=== PATIENT | female | born 1950 | race Two or more races ===

== ENCOUNTER 2023-01-07 00:21 | Inpatient (IN) | payer MEDICARE, OTHER ==
[~2023-01-07] VITALS: Ht 157.5 cm; Wt 37.2 kg
[~2023-01-07 00:21] MED LIST: ACET-73 PO; ATOR40TA PO; BISA10SU11 RC; CLOP75TA15 PO; CRAN1CAP6 PO; DOCU-141 PO; FAMO20TA8 PO; HYDR-3974 PO; LEVO50TA8 PO; LISI-768 PO; MAGN24002 PO; MELA3TAB41 PO; QUET50TA PO; SODI100037 PO
[2023-01-07 01:06] LABS: BASOPHILS # (AUTO) 0.1 K/uL (0.0-0.2); BASOPHILS % (AUTO) 0.8 % (0.0-2.0); EOSINOPHILS # (AUTO) 0.2 K/uL (0.0-0.7); EOSINOPHILS % (AUTO) 3.1 % (0.0-6.0); HEMATOCRIT 25 % (33-45); LYMPHOCYTES % (AUTO) 12.6 % (20.0-44.0); MEAN CORPUSCULAR HEMOGLOBIN 26 PG (26.0-33.0); MEAN CORPUSCULAR HGB CONC 32 g/dl (31.0-36.0); MEAN CORPUSCULAR VOLUME 83 fL (82-100); MONOCYTES # (AUTO) 0.5 K/uL (0.1-1.30); MONOCYTES % (AUTO) 6.1 % (2.0-12.0); NEUTROPHILS % (AUTO) 77.4 % (43.0-81.0); PLATELET COUNT (AUTO) 692 K/uL (150-450); RED BLOOD CELL COUNT(AUTO) 3.07 MIL/uL (4.0-5.2); RED CELL DISTRIBUTION WIDTH 19.8 % (11.5-15.0); WHITE BLOOD COUNT (AUTO) 7.7 K/uL (4.3-11.0)
[2023-01-07 01:18] LABS: CALCIUM, SERUM 8.9 mg/dL (8.5-10.1); CARBON DIOXIDE 32 mmol/L (21-32); CHLORIDE 100 mmol/L (98-107); CREATININE 0.4 mg/dL (0.6-1.3); GLUCOSE 96 mg/dL (74-106); POTASSIUM 4.2 mmol/L (3.5-5.1); SODIUM SERUM 137 mmol/L (136-145); UREA NITROGEN, BLOOD 24 mg/dL (7-18)
[2023-01-07 01:19] LABS: INR 1.08 (0.91-1.10); PROTHROMBIN TIME 11.4 SECS (9.2-11.1)
[2023-01-07 01:24] LABS: OCCULT BLOOD STOOL NEGATIVE (NEGATIVE)
[2023-01-07 01:24] LABS: ALANINE AMINOTRANSFERASE 23 U/L (12-78); ALBUMIN 2.4 g/dL (3.4-5.0); ALKALINE PHOSPHATASE 105 U/L (46-116); ASPARTATE AMINOTRANSFERASE 25 U/L (15-37); BILIRUBIN,DIRECT 0.1 mg/dL (0.0-0.2); BILIRUBIN,TOTAL 0.2 mg/dL (0.2-1.0); LIPASE 28 U/L (16-77); TOTAL PROTEIN, SERUM 8.1 g/dL (6.4-8.2)
[2023-01-07 01:25] LABS: APPEARANCE,URINE TURBID (CLEAR); BILIRUBIN,URINE 2+ (NEGATIVE); BLOOD, URINE 3+ Ery/uL (NEGATIVE); COLOR,URINE BROWN (YELLOW); KETONES,URINE TRACE mg/dL (NEGATIVE); LEUKOCYTE ESTERASE ,URINE 3+ (NEGATIVE); NITRITE, URINE POSITIVE (NEGATIVE); PH,URINE 7.5 (5.0-8.0); PROTEIN,URINE 3+ mg/dl (NEGATIVE); UGLUCOSE NEGATIVE (NEGATIVE)
[2023-01-07] MEDS ORDERED: CEFTRIAXONE 1GM BAG (ER ONLY) 50 ML IV ONE (02:00)
[2023-01-07] MEDS ORDERED: IV NS 0.9% 1,000 ML BAG IV ONE ×2 (02:00)
[2023-01-07 02:38] LABS: RBC,URINE TOO NUMEROUS TO COUN /HPF (0-2); WBC,URINE 21-50 /HPF (0-3)
[2023-01-07 02:39] LABS: ADD URINE CULTURE YES; BACTERIA,URINE 4+ /HPF (None Seen); MUCUS,URINE Many /LPF (None Seen)
[2023-01-07] MEDS ORDERED: ZOLPIDEM TARTRATE 5 MG TABLET PO PRN (03:00)
[2023-01-07] MEDS ORDERED: MAG HYDROX/AL HYDROX/SIMETH 30 ML UDC PO PRN (03:00)
[2023-01-07] MEDS ORDERED: MAGNESIUM HYDROXIDE 30 ML UDC PO PRN (03:00)
[2023-01-07] MEDS ORDERED: ONDANSETRON HCL/PF 4 MG/2 ML VIAL IVP PRN (03:00)
[2023-01-07] MEDS ORDERED: Z GUARD REMEDY 4 OZ OINT TP PRN (03:00)
[2023-01-07] MEDS ORDERED: VANCOMYCIN 1 GM in IV D5W 250 ML IV ONE (03:00)
[2023-01-07] MEDS ORDERED: ENOXAPARIN SODIUM 40 MG/0.4 ML DISP.SYRIN SQ SCH (03:00)
[2023-01-07] MEDS ORDERED: ACETAMINOPHEN 325 MG TABLET PO PRN (03:00)
[2023-01-07] MEDS ORDERED: VANCOMYCIN 1 GM /D5W 250 ML PB IV ONE (03:02)
[2023-01-07 03:30] VITALS: BP 138/83; TEMP 97.5; O2SAT 96
[2023-01-07] MEDS ORDERED: ZOSYN IVPB 3.375 G in IV D5W 50ml IV ONE (04:00)
[2023-01-07] MEDS ORDERED: PIPERACI/TAZO 3.375GM/D5W 50ML PB IV ONE (04:32)
[2023-01-07 05:59] LABS: BASOPHILS % (AUTO) 0.2 % (0.0-2.0); EOSINOPHILS # (AUTO) 0.2 K/uL (0.0-0.7); EOSINOPHILS % (AUTO) 2.1 % (0.0-6.0); HEMATOCRIT 27 % (33-45); HEMOGLOBIN 8.4 g/dL (11.5-14.8); LYMPHOCYTES # (AUTO) 0.8 K/uL (0.8-4.8); LYMPHOCYTES % (AUTO) 8.2 % (20.0-44.0); MEAN CORPUSCULAR HEMOGLOBIN 26 PG (26.0-33.0); MEAN CORPUSCULAR HGB CONC 31 g/dl (31.0-36.0); MEAN CORPUSCULAR VOLUME 85 fL (82-100); MONOCYTES # (AUTO) 0.4 K/uL (0.1-1.30); MONOCYTES % (AUTO) 4.3 % (2.0-12.0); NEUTROPHILS # (AUTO) 8.8 K/uL (1.8-8.9); NEUTROPHILS % (AUTO) 85.2 % (43.0-81.0); PLATELET COUNT (AUTO) 580 K/uL (150-450); RED BLOOD CELL COUNT(AUTO) 3.17 MIL/uL (4.0-5.2); RED CELL DISTRIBUTION WIDTH 19.9 % (11.5-15.0); WHITE BLOOD COUNT (AUTO) 10.4 K/uL (4.3-11.0)
[2023-01-07] MEDS ORDERED: PIPERACILLIN /TAZOBACTAM 3.375 G in IV D5W 50 ML IV SCH (06:00)
[2023-01-07] MEDS ORDERED: VANCOMYCIN 0.75 GM in IV D5W 250 ML IV SCH (06:00)
[2023-01-07 06:15] LABS: CARBON DIOXIDE 29 mmol/L (21-32); CHLORIDE 100 mmol/L (98-107); CREATININE 0.3 mg/dL (0.6-1.3); GLUCOSE 109 mg/dL (74-106); MAGNESIUM 2.4 mg/dL (1.8-2.4); PHOSPHORUS 2.9 mg/dL (2.5-4.9); POTASSIUM 4.1 mmol/L (3.5-5.1); SODIUM SERUM 136 mmol/L (136-145); UREA NITROGEN, BLOOD 19 mg/dL (7-18)
[2023-01-07 06:22] LABS: IRON, SERUM 13 ug/dl (50-175); TOTAL IRON BINDING CAPACITY 170 ug/dl (250-450)
[2023-01-07] MEDS: PANTOPRAZOLE 40 MG VIAL IV SCH (08:39)
[2023-01-07] MEDS: THERAHONEY GEL 1.5 OZ TUBE TP SCH (08:42)
[2023-01-07] MEDS ORDERED: ASCO-340 GT (08:53)
[2023-01-07] MEDS ORDERED: DOCU100T2 GT (08:53)
[2023-01-07] MEDS ORDERED: ACET-2605 GT ×2 (08:53)
[2023-01-07] MEDS ORDERED: NUTR1PAC14 GT (08:53)
[2023-01-07] MEDS ORDERED: CRAN425C6 GT (08:53)
[2023-01-07] MEDS ORDERED: METO25TA6 GT (08:53)
[2023-01-07] MEDS ORDERED: IPRA3AMP23 IH (08:53)
[2023-01-07] MEDS ORDERED: LISI10TA29 GT (08:53)
[2023-01-07] MEDS ORDERED: LEVO100T GT (08:53)
[2023-01-07] MEDS ORDERED: HYDR-4303 GT (08:53)
[2023-01-07] MEDS ORDERED: CHOL100043 GT (08:53)
[2023-01-07] MEDS ORDERED: AMIN30LI2 GT (08:53)
[2023-01-07] MEDS ORDERED: HONE15GE TP (08:53)
[2023-01-07] MEDS ORDERED: ACET-868 GT (08:53)
[2023-01-07] MEDS ORDERED: MULT-213 GT (08:53)
[2023-01-07] MEDS ORDERED: COLL1POW2 TP (08:53)
[2023-01-07] MEDS ORDERED: NUT.237L30 GT (08:53)
[2023-01-07] MEDS ORDERED: SODI100037 GT (08:53)
[2023-01-07] MEDS ORDERED: MAGN400O6 GT (08:53)
[2023-01-07 09:49] VITALS: BP 123/84; TEMP 98.1; O2SAT 97
[2023-01-07] MEDS ORDERED: ALBUTEROL FS 2.5 MG/0.5 ML VIAL.NEB NEB PRN (11:00)
[2023-01-07] MEDS ORDERED: IPRATROPIUM NEB FS 0.5 MG/2.5 ML AMPUL.NEB NEB PRN (11:00)
[2023-01-07] MEDS ORDERED: CHOLECALCIFEROL 1,000 UNIT TABLET (VIT D3) PO SCH (11:00)
[2023-01-07] MEDS ORDERED: PROSOURCE / PROSTAT (PYXIS) 30 ML UDC GT SCH (11:00)
[2023-01-07] MEDS: GLUCERNA 1.2 1,000 ML BOTTLE NG PRN (11:18)
[2023-01-07] MEDS: CHOLECALCIFEROL 1,000 UNIT TABLET (VIT D3) GT SCH (11:32)
[2023-01-07] MEDS: MULTIVITAMINS,THERAGRAN 1 UDTAB TABLET GT SCH (11:32)
[2023-01-07] MEDS: ARGININE/GLUTAMINE/CALCIUM BMB 1 EACH POWD.PACK GT SCH ×2 (11:33→21:24)
[2023-01-07] MEDS: DOCUSATE SODIUM LIQ 100 MG/10 ML UDC GT SCH (11:33)
[2023-01-07] MEDS: METOPROLOL TARTRATE 25 MG TABLET GT SCH ×2 (11:33→21:23)
[2023-01-07] MEDS: LEVOTHYROXINE SODIUM 100 MCG TABLET GT SCH (11:33)
[2023-01-07] MEDS: SODIUM CHLORIDE 1000 MG TABLET GT SCH ×2 (11:33→17:14)
[2023-01-07] MEDS: PIPERACILLIN /TAZOBACTAM 2.25 G in IV D5W 50 ML IV SCH ×2 (12:50→17:58)
[2023-01-07] MEDS: IV NS 0.9% 1,000 ML IV PRN (12:50)
[2023-01-07 16:00] VITALS: BP 96/61; TEMP 98.8; O2SAT 95
[2023-01-07] MEDS ORDERED: ARGININE/GLUTAMINE/CALCIUM BMB 1 EACH POWD.PACK GT SCH (17:00)
[2023-01-07 21:06] VITALS: BP 134/67; TEMP 98.2; O2SAT 98
[2023-01-07] MEDS ORDERED: CEFTRIAXONE 1 G in IV D5W 50 ML IV SCH (22:00)
[2023-01-07] MEDS: ENOXAPARIN SODIUM 30 MG/0.3 ML DISP.SYRIN SQ SCH (22:00)
[2023-01-08] MEDS: PIPERACILLIN /TAZOBACTAM 2.25 G in IV D5W 50 ML IV SCH ×5 (00:28→23:01)
[2023-01-08] MEDS: VANCOMYCIN 0.75 GM in IV D5W 250 ML IV SCH (06:15)
[2023-01-08 06:27] LABS: CARBON DIOXIDE 30 mmol/L (21-32); CHLORIDE 105 mmol/L (98-107); CREATININE 0.4 mg/dL (0.6-1.3); GLUCOSE 124 mg/dL (74-106); POTASSIUM 3.6 mmol/L (3.5-5.1); SODIUM SERUM 142 mmol/L (136-145); UREA NITROGEN, BLOOD 36 mg/dL (7-18)
[2023-01-08 07:00] VITALS: BP 122/66; TEMP 98.4; O2SAT 97
[2023-01-08] MEDS: PANTOPRAZOLE 40 MG VIAL IV SCH (08:23)
[2023-01-08] MEDS: DOCUSATE SODIUM LIQ 100 MG/10 ML UDC GT SCH (08:23)
[2023-01-08] MEDS: LEVOTHYROXINE SODIUM 100 MCG TABLET GT SCH (08:23)
[2023-01-08] MEDS: PROSOURCE / PROSTAT (PYXIS) 30 ML UDC GT SCH (08:24)
[2023-01-08] MEDS: CHOLECALCIFEROL 1,000 UNIT TABLET (VIT D3) GT SCH (08:24)
[2023-01-08] MEDS: MULTIVITAMINS,THERAGRAN 1 UDTAB TABLET GT SCH (08:24)
[2023-01-08] MEDS: SODIUM CHLORIDE 1000 MG TABLET GT SCH ×2 (08:24→16:21)
[2023-01-08] MEDS: ARGININE/GLUTAMINE/CALCIUM BMB 1 EACH POWD.PACK GT SCH ×2 (08:25→20:34)
[2023-01-08] MEDS: METOPROLOL TARTRATE 25 MG TABLET GT SCH ×2 (08:26→20:35)
[2023-01-08] MEDS: PANTOPRAZOLE 40 MG/PACK PACK GT SCH (09:00)
[2023-01-08] MEDS: THERAHONEY GEL 1.5 OZ TUBE TP SCH ×2 (09:01)
[2023-01-08] MEDS: IV NS 0.9% 1,000 ML IV PRN (15:40)
[2023-01-08 16:00] VITALS: BP 102/63; TEMP 98.8; O2SAT 99
[2023-01-08] MEDS: GLUCERNA 1.2 1,000 ML BOTTLE NG PRN (16:30)
[2023-01-08 20:00] VITALS: BP 102/82; TEMP 97.8; O2SAT 98
[2023-01-08] MEDS: ENOXAPARIN SODIUM 30 MG/0.3 ML DISP.SYRIN SQ SCH (21:09)
[2023-01-09] MEDS: PIPERACILLIN /TAZOBACTAM 2.25 G in IV D5W 50 ML IV SCH ×4 (05:00→17:12)
[2023-01-09] MEDS: VANCOMYCIN 0.75 GM in IV D5W 250 ML IV SCH (05:24)
[2023-01-09 07:23] LABS: BASOPHILS % (AUTO) 0.5 % (0.0-2.0); EOSINOPHILS # (AUTO) 0.2 K/uL (0.0-0.7); EOSINOPHILS % (AUTO) 3.7 % (0.0-6.0); HEMATOCRIT 23 % (33-45); HEMOGLOBIN 7.2 g/dL (11.5-14.8); LYMPHOCYTES % (AUTO) 19.1 % (20.0-44.0); MEAN CORPUSCULAR HEMOGLOBIN 27 PG (26.0-33.0); MEAN CORPUSCULAR HGB CONC 32 g/dl (31.0-36.0); MEAN CORPUSCULAR VOLUME 84 fL (82-100); MONOCYTES # (AUTO) 0.4 K/uL (0.1-1.30); MONOCYTES % (AUTO) 8.4 % (2.0-12.0); NEUTROPHILS # (AUTO) 3.4 K/uL (1.8-8.9); NEUTROPHILS % (AUTO) 68.3 % (43.0-81.0); PLATELET COUNT (AUTO) 512 K/uL (150-450); RED CELL DISTRIBUTION WIDTH 19.8 % (11.5-15.0)
[2023-01-09 07:29] LABS: INR 1.15 (0.91-1.10); PARTIAL THROMBOPLASTIN TIME 33.7 SEC (24.3-34.3); PROTHROMBIN TIME 12.1 SECS (9.2-11.1)
[2023-01-09 07:40] LABS: CALCIUM, SERUM 7.6 mg/dL (8.5-10.1); CARBON DIOXIDE 30 mmol/L (21-32); CHLORIDE 106 mmol/L (98-107); CREATININE 0.4 mg/dL (0.6-1.3); GLUCOSE 160 mg/dL (74-106); MAGNESIUM 2.6 mg/dL (1.8-2.4); PHOSPHORUS 2.3 mg/dL (2.5-4.9); SODIUM SERUM 142 mmol/L (136-145); UREA NITROGEN, BLOOD 28 mg/dL (7-18)
[2023-01-09 08:18] LABS: POTASSIUM 2.8 mmol/L (3.5-5.1)
[2023-01-09 08:22] VITALS: BP 107/58; TEMP 98.9; O2SAT 98
[2023-01-09] MEDS: LEVOTHYROXINE SODIUM 100 MCG TABLET GT SCH (08:22)
[2023-01-09] MEDS: DOCUSATE SODIUM LIQ 100 MG/10 ML UDC GT SCH (08:24)
[2023-01-09] MEDS: METOPROLOL TARTRATE 25 MG TABLET GT SCH (08:24)
[2023-01-09] MEDS: SODIUM CHLORIDE 1000 MG TABLET GT SCH ×2 (08:24→16:11)
[2023-01-09] MEDS: MULTIVITAMINS,THERAGRAN 1 UDTAB TABLET GT SCH (08:25)
[2023-01-09] MEDS: PANTOPRAZOLE 40 MG/PACK PACK GT SCH (08:25)
[2023-01-09] MEDS: CHOLECALCIFEROL 1,000 UNIT TABLET (VIT D3) GT SCH (08:25)
[2023-01-09] MEDS: ARGININE/GLUTAMINE/CALCIUM BMB 1 EACH POWD.PACK GT SCH (08:35)
[2023-01-09] MEDS: PROSOURCE / PROSTAT (PYXIS) 30 ML UDC GT SCH (08:35)
[2023-01-09] MEDS: THERAHONEY GEL 1.5 OZ TUBE TP SCH ×2 (08:36→08:37)
[2023-01-09] MEDS: POTASSIUM CHLORIDE 20 MEQ POWDER PACKET NG SCH ×3 (09:36→11:44)
[2023-01-09] MEDS ORDERED: LEVO500T90 PO (10:26)
[2023-01-09] MEDS ORDERED: POTASSIUM CHLORIDE 20 MEQ POWDER PACKET GT ONE (10:30)
[2023-01-09] MEDS: GLUCERNA 1.2 1,000 ML BOTTLE NG PRN (13:04)
[2023-01-09 16:29] VITALS: BP 104/81; TEMP 97.4; O2SAT 100
[2023-01-09] MEDS ORDERED: K PHOS NEUTRAL 250 MG TABLET PO ONE (16:30)
== END 2023-01-09 18:20 | DRG 853 ==
LOC: ER 00:22 → TELE 02:09 → MED 03:49
PROVIDERS: ADMIT Nurse Practitioner Acute Care; ATTEND Nurse Practitioner Acute Care
PROC: 0JBR0ZZ Excision of Left Foot Subcutaneous Tissue and Fascia, Open Approach (ICD-10-PCS; principal; 2023-01-08)
PROC: 0SBN0ZZ Excision of Left Metatarsal-Phalangeal Joint, Open Approach (ICD-10-PCS; 2023-01-08)
DX: A41.9 Sepsis, unspecified organism (principal); G93.41 Metabolic encephalopathy; L89.893 Pressure ulcer of other site, stage 3; L89.154 Pressure ulcer of sacral region, stage 4; L89.523 Pressure ulcer of left ankle, stage 3; R53.2 Functional quadriplegia; J15.69 Pneumonia due to other Gram-negative bacteria; N39.0 Urinary tract infection, site not specified; D68.69 Other thrombophilia; R47.01 Aphasia; D62 Acute posthemorrhagic anemia; Z68.1 Body mass index [BMI] 19.9 or less, adult; E44.0 Moderate protein-calorie malnutrition; F03.90 Unspecified dementia, unspecified severity, without behavioral disturbance, psychotic disturbance, mood disturbance, and anxiety; J44.9 Chronic obstructive pulmonary disease, unspecified; E78.5 Hyperlipidemia, unspecified; E88.09 Other disorders of plasma-protein metabolism, not elsewhere classified; I10 Essential (primary) hypertension; I25.10 Atherosclerotic heart disease of native coronary artery without angina pectoris; K59.00 Constipation, unspecified; M24.571 Contracture, right ankle; M24.572 Contracture, left ankle; R13.10 Dysphagia, unspecified; Z66 Do not resuscitate; Z93.1 Gastrostomy status; E11.9 Type 2 diabetes mellitus without complications; Z86.73 Personal history of transient ischemic attack (TIA), and cerebral infarction without residual deficits; R31.9 Hematuria, unspecified; B96.89 Other specified bacterial agents as the cause of diseases classified elsewhere
CPT/HCPCS: 36415; 80048-TC; 80076-TC; 81001; 82272-TC; 83540-TC; 83605-TC; 83690-TC; 83735-TC; 84100-TC; 85025-TC; 85610-TC; 85730-TC; 87040-TC; 87081-TC; 87086-TC; A4223; A6403; C9113; G0378; J0696; J1650; J2543; J3370; J7030; J7040; J7042; J7050; J7060

== ENCOUNTER 2023-02-06 13:42 | Inpatient (IN) | payer MEDICARE, OTHER ==
[~2023-02-06] VITALS: Ht 147.3 cm; Wt 36.3 kg
[~2023-02-06 13:42] MED LIST changes: +ACET-2605 GT; -ACET-73 PO; +ACET-868 GT; +AMIN30LI2 GT; +ASCO-340 GT; -ATOR40TA PO; -BISA10SU11 RC; +CHOL100043 GT; -CLOP75TA15 PO; +COLL1POW2 TP; -CRAN1CAP6 PO; +CRAN425C6 GT; -DOCU-141 PO; +DOCU100T2 GT; -FAMO20TA8 PO; +HONE15GE TP; -HYDR-3974 PO; +HYDR-4303 GT; +IPRA3AMP23 IH; +LEVO100T GT; +LEVO500T90 PO; -LEVO50TA8 PO; -LISI-768 PO; +LISI10TA29 GT; -MAGN24002 PO; +MAGN400O6 GT; -MELA3TAB41 PO; +METO25TA6 GT; +MULT-213 GT; +NUT.237L30 GT; +NUTR1PAC14 GT; -QUET50TA PO; +SODI100037 GT; -SODI100037 PO
[2023-02-06] MEDS ORDERED: AZITHROMYCIN 500 MG in IV D5W 250 ML IV ONE (14:30)
[2023-02-06] MEDS ORDERED: ACETAMINOPHEN 650 MG/SUPP.RECT RC ONE ×2 (14:30→14:39)
[2023-02-06] MEDS ORDERED: IV NS 0.9% 1,000 ML BAG IV ONE (14:30)
[2023-02-06] MEDS ORDERED: PIPERACILLIN /TAZOBACTAM 3.375 G in IV D5W 50 ML IV ONE (14:30)
[2023-02-06] MEDS ORDERED: VANCOMYCIN 1 GM in IV D5W 250 ML IV ONE (14:30)
[2023-02-06] MEDS ORDERED: VANCOMYCIN 1 GM /D5W 250 ML PB IV ONE (14:39)
[2023-02-06] MEDS ORDERED: PIPERACI/TAZO 3.375GM/D5W 50ML PB IV ONE (14:39)
[2023-02-06 14:51] LABS: APPEARANCE,URINE CLOUDY (CLEAR); BILIRUBIN,URINE NEGATIVE (NEGATIVE); BLOOD, URINE 2+ Ery/uL (NEGATIVE); COLOR,URINE YELLOW (YELLOW); KETONES,URINE NEGATIVE (NEGATIVE); LEUKOCYTE ESTERASE ,URINE 2+ (NEGATIVE); NITRITE, URINE NEGATIVE (NEGATIVE); PH,URINE 6.5 (5.0-8.0); PROTEIN,URINE 2+ mg/dl (NEGATIVE); UGLUCOSE NEGATIVE (NEGATIVE)
[2023-02-06 14:54] LABS: BASOPHILS % (AUTO) 0.1 % (0.0-2.0); EOSINOPHILS % (AUTO) 0.1 % (0.0-6.0); HEMATOCRIT 33 % (33-45); HEMOGLOBIN 9.9 g/dL (11.5-14.8); LYMPHOCYTES # (AUTO) 0.3 K/uL (0.8-4.8); LYMPHOCYTES % (AUTO) 1.3 % (20.0-44.0); MEAN CORPUSCULAR HEMOGLOBIN 26 PG (26.0-33.0); MEAN CORPUSCULAR HGB CONC 31 g/dl (31.0-36.0); MEAN CORPUSCULAR VOLUME 86 fL (82-100); MONOCYTES # (AUTO) 0.8 K/uL (0.1-1.30); NEUTROPHILS # (AUTO) 25.3 K/uL (1.8-8.9); NEUTROPHILS % (AUTO) 95.5 % (43.0-81.0); PLATELET COUNT (AUTO) 358 K/uL (150-450); RED BLOOD CELL COUNT(AUTO) 3.81 MIL/uL (4.0-5.2); RED CELL DISTRIBUTION WIDTH 18.6 % (11.5-15.0); WHITE BLOOD COUNT (AUTO) 26.5 K/uL (4.3-11.0)
[2023-02-06 15:00] LABS: CALCIUM, SERUM 9.1 mg/dL (8.5-10.1); CARBON DIOXIDE 32 mmol/L (21-32); CHLORIDE 99 mmol/L (98-107); CREATININE 0.6 mg/dL (0.6-1.3); GLUCOSE 130 mg/dL (74-106); SODIUM SERUM 138 mmol/L (136-145); UREA NITROGEN, BLOOD 29 mg/dL (7-18)
[2023-02-06 15:14] LABS: ALANINE AMINOTRANSFERASE 37 U/L (12-78); ALBUMIN 2.5 g/dL (3.4-5.0); ALKALINE PHOSPHATASE 139 U/L (46-116); ASPARTATE AMINOTRANSFERASE 35 U/L (15-37); BILIRUBIN,DIRECT 0.1 mg/dL (0.0-0.2); BILIRUBIN,TOTAL 0.3 mg/dL (0.2-1.0); TOTAL PROTEIN, SERUM 8.7 g/dL (6.4-8.2)
[2023-02-06 15:28] LABS: INR 1.18 (0.91-1.10); PARTIAL THROMBOPLASTIN TIME 38.9 SEC (24.3-34.3); PROTHROMBIN TIME 12.4 SECS (9.2-11.1)
[2023-02-06] MEDS ORDERED: BISA10SU11 RC (15:33)
[2023-02-06] MEDS ORDERED: PANT40SU2 GT (15:33)
[2023-02-06] MEDS ORDERED: AMIN30LI66 GT (15:33)
[2023-02-06] MEDS ORDERED: POLY17PO4 GT (15:33)
[2023-02-06] MEDS ORDERED: ACET650S11 RC (15:33)
[2023-02-06] MEDS ORDERED: IPRATROPIUM NEB FS 0.5 MG/2.5 ML AMPUL.NEB NEB PRN (16:00)
[2023-02-06] MEDS ORDERED: Z GUARD REMEDY 4 OZ OINT TP PRN (16:00)
[2023-02-06] MEDS ORDERED: ONDANSETRON HCL/PF 4 MG/2 ML VIAL IVP PRN (16:00)
[2023-02-06] MEDS ORDERED: ALBUTEROL FS 2.5 MG/0.5 ML VIAL.NEB NEB PRN (16:00)
[2023-02-06] MEDS ORDERED: ACETAMINOPHEN 325 MG TABLET PO PRN (16:00)
[2023-02-06] MEDS ORDERED: HYDROCODONE/APAP 5/325MG TABLET PO PRN (16:00)
[2023-02-06 16:11] LABS: ADD URINE CULTURE YES; BACTERIA,URINE 3+ /HPF (None Seen); CALCIUM OXALATE CRYSTALS,UR Few /HPF (None Seen); MUCUS,URINE Few /LPF (None Seen); RBC,URINE 21-50 /HPF (0-2); SQUAMOUS EPITHELIAL CELL,UR 0-2 /HPF (None Seen); WBC,URINE 80 /HPF (0-3)
[2023-02-06] MEDS: METOPROLOL TARTRATE 25 MG TABLET GT SCH (17:00)
[2023-02-06] MEDS: IV NS 0.9% 1,000 ML IV PRN (17:49)
[2023-02-06] MEDS: methylPREDNISolone SOD SUCC 125 MG/2ML VIAL IV SCH ×2 (18:13→21:16)
[2023-02-06] MEDS: ZOSYN IVPB 3.375 G in IV D5W 50ml IV SCH ×2 (18:13→23:16)
[2023-02-06 18:14] LABS: ANISOCYTOSIS 1+; BAND % (MANUAL) 4 % (0.0-5.0); LYMPHOCYTES % (MANUAL) 5 % (16-48); MONOCYTES % (MANUAL) 2 % (0-11.0); NEUTROPHILS % (MANUAL) 89 (42-76); PLATELET ESTIMATE ADEQUATE; ROULEAUX 1+
[2023-02-06] MEDS: ENOXAPARIN SODIUM 40 MG/0.4 ML DISP.SYRIN SQ SCH (18:15)
[2023-02-06 19:14] VITALS: BP 101/83; TEMP 98; O2SAT 95
[2023-02-07] MEDS ORDERED: VANCOMYCIN 500 MG in IV D5W 100 ML IV SCH (03:00)
[2023-02-07] MEDS: methylPREDNISolone SOD SUCC 125 MG/2ML VIAL IV SCH ×3 (05:16→21:06)
[2023-02-07] MEDS: ZOSYN IVPB 3.375 G in IV D5W 50ml IV SCH ×4 (05:17→23:22)
[2023-02-07 05:45] LABS: EOSINOPHILS % (AUTO) 0.1 % (0.0-6.0); HEMATOCRIT 25 % (33-45); HEMOGLOBIN 7.8 g/dL (11.5-14.8); LYMPHOCYTES # (AUTO) 0.4 K/uL (0.8-4.8); MEAN CORPUSCULAR HEMOGLOBIN 26 PG (26.0-33.0); MEAN CORPUSCULAR HGB CONC 31 g/dl (31.0-36.0); MEAN CORPUSCULAR VOLUME 85 fL (82-100); MONOCYTES # (AUTO) 0.2 K/uL (0.1-1.30); NEUTROPHILS # (AUTO) 18.2 K/uL (1.8-8.9); NEUTROPHILS % (AUTO) 96.9 % (43.0-81.0); PLATELET COUNT (AUTO) 265 K/uL (150-450); RED BLOOD CELL COUNT(AUTO) 2.95 MIL/uL (4.0-5.2); RED CELL DISTRIBUTION WIDTH 18.2 % (11.5-15.0); WHITE BLOOD COUNT (AUTO) 18.8 K/uL (4.3-11.0)
[2023-02-07 06:05] LABS: CALCIUM, SERUM 8.6 mg/dL (8.5-10.1); CARBON DIOXIDE 29 mmol/L (21-32); CHLORIDE 103 mmol/L (98-107); CREATININE 0.3 mg/dL (0.6-1.3); GLUCOSE 125 mg/dL (74-106); MAGNESIUM 2.2 mg/dL (1.8-2.4); PHOSPHORUS 2.7 mg/dL (2.5-4.9); POTASSIUM 3.5 mmol/L (3.5-5.1); SODIUM SERUM 139 mmol/L (136-145); UREA NITROGEN, BLOOD 19 mg/dL (7-18)
[2023-02-07] MEDS: IV NS 0.9% 1,000 ML IV PRN (06:25)
[2023-02-07] MEDS: LEVOTHYROXINE SODIUM 100 MCG TABLET GT SCH (07:41)
[2023-02-07] MEDS: METOPROLOL TARTRATE 25 MG TABLET GT SCH ×2 (08:40→17:00)
[2023-02-07] MEDS: GLUCERNA 1.2 1,000 ML BOTTLE NG PRN (09:43)
[2023-02-07] MEDS: DAKINS QUARTER STRENGTH (0.125%) 480 ML BOTTLE TOP SCH (10:32)
[2023-02-07] MEDS: HYDROCODONE/APAP 5/325MG TABLET GT PRN (10:41)
[2023-02-07 14:33] LABS: HIV-1 p24 ANTIGEN NON REACTIVE (NONREACTIVE); HIV-1/2 ANTIBODY NON REACTIVE (NONREACTIVE)
[2023-02-07] MEDS: ENOXAPARIN SODIUM 40 MG/0.4 ML DISP.SYRIN SQ SCH (18:46)
[2023-02-07] MEDS: VANCOMYCIN 500 MG in IV D5W 100 ML IV SCH (19:04)
[2023-02-07 20:00] VITALS: BP 107/77; TEMP 97.4; O2SAT 95
[2023-02-07] MEDS: AZITHROMYCIN 500 MG in IV D5W 250 ML IV SCH (20:56)
[2023-02-08] VITALS (8 sets, daily range): BP systolic 108–144; BP diastolic 76–98; TEMP 97.5–99; O2SAT 97–100
[2023-02-08] MEDS: IV NS 0.9% 1,000 ML IV PRN ×2 (03:52→20:04)
[2023-02-08] MEDS: methylPREDNISolone SOD SUCC 125 MG/2ML VIAL IV SCH ×3 (05:11→20:01)
[2023-02-08] MEDS: ZOSYN IVPB 3.375 G in IV D5W 50ml IV SCH ×4 (05:13→23:14)
[2023-02-08 07:33] LABS: EOSINOPHILS # (AUTO) 0.1 K/uL (0.0-0.7); EOSINOPHILS % (AUTO) 0.4 % (0.0-6.0); HEMATOCRIT 28 % (33-45); HEMOGLOBIN 8.5 g/dL (11.5-14.8); LYMPHOCYTES # (AUTO) 0.4 K/uL (0.8-4.8); LYMPHOCYTES % (AUTO) 2.5 % (20.0-44.0); MEAN CORPUSCULAR HEMOGLOBIN 26 PG (26.0-33.0); MEAN CORPUSCULAR HGB CONC 31 g/dl (31.0-36.0); MEAN CORPUSCULAR VOLUME 86 fL (82-100); MONOCYTES # (AUTO) 0.3 K/uL (0.1-1.30); MONOCYTES % (AUTO) 1.9 % (2.0-12.0); NEUTROPHILS # (AUTO) 16.7 K/uL (1.8-8.9); NEUTROPHILS % (AUTO) 95.2 % (43.0-81.0); PLATELET COUNT (AUTO) 300 K/uL (150-450); RED BLOOD CELL COUNT(AUTO) 3.24 MIL/uL (4.0-5.2); WHITE BLOOD COUNT (AUTO) 17.5 K/uL (4.3-11.0)
[2023-02-08 08:34] LABS: BILIRUBIN,TOTAL 0.3 mg/dL (0.2-1.0); CALCIUM, SERUM 9.1 mg/dL (8.5-10.1); CREATININE 0.6 mg/dL (0.6-1.3); MAGNESIUM 2.3 mg/dL (1.8-2.4); PHOSPHORUS 2.2 mg/dL (2.5-4.9); POTASSIUM 3.8 mmol/L (3.5-5.1); TOTAL PROTEIN, SERUM 7.3 g/dL (6.4-8.2)
[2023-02-08] MEDS: LEVOTHYROXINE SODIUM 100 MCG TABLET GT SCH (08:51)
[2023-02-08] MEDS: DAKINS QUARTER STRENGTH (0.125%) 480 ML BOTTLE TOP SCH (08:52)
[2023-02-08] MEDS: METOPROLOL TARTRATE 25 MG TABLET GT SCH ×2 (08:52→16:08)
[2023-02-08] MEDS: THERAHONEY GEL 1.5 OZ TUBE TP SCH (08:52)
[2023-02-08] MEDS: VANCOMYCIN 500 MG in IV D5W 100 ML IV SCH (08:52)
[2023-02-08] MEDS: HYDROCODONE/APAP 5/325MG TABLET GT PRN ×2 (11:17→19:55)
[2023-02-08] MEDS ORDERED: SODIUM CL FOR INHALATION 3% 15 ML VIAL.NEB IH ONE (13:00)
[2023-02-08] MEDS: ENOXAPARIN SODIUM 40 MG/0.4 ML DISP.SYRIN SQ SCH (15:14)
[2023-02-08] MEDS ORDERED: NEUTRA PHOS 1 POWD.PACKET GT ONE (16:00)
[2023-02-08] MEDS: AZITHROMYCIN 500 MG in IV D5W 250 ML IV SCH (17:47)
[2023-02-08] MEDS: GLUCERNA 1.2 1,000 ML BOTTLE NG PRN (19:22)
[2023-02-08] MEDS: VANCOMYCIN HCL 0.75 GM in IV D5W 250 ML IV SCH (19:54)
[2023-02-09] VITALS (12 sets, daily range): BP systolic 94–137; BP diastolic 46–90; TEMP 97–98.8; O2SAT 87–100
[2023-02-09] MEDS: HYDROCODONE/APAP 5/325MG TABLET GT PRN ×3 (00:12→09:30)
[2023-02-09] MEDS: methylPREDNISolone SOD SUCC 125 MG/2ML VIAL IV SCH ×3 (04:53→20:06)
[2023-02-09] MEDS: ZOSYN IVPB 3.375 G in IV D5W 50ml IV SCH ×3 (05:00→17:14)
[2023-02-09 06:59] LABS: HEMATOCRIT 30 % (33-45); HEMOGLOBIN 9.1 g/dL (11.5-14.8); LYMPHOCYTES # (AUTO) 0.4 K/uL (0.8-4.8); LYMPHOCYTES % (AUTO) 1.6 % (20.0-44.0); MEAN CORPUSCULAR HEMOGLOBIN 26 PG (26.0-33.0); MEAN CORPUSCULAR HGB CONC 31 g/dl (31.0-36.0); MEAN CORPUSCULAR VOLUME 86 fL (82-100); MONOCYTES # (AUTO) 0.6 K/uL (0.1-1.30); MONOCYTES % (AUTO) 2.5 % (2.0-12.0); NEUTROPHILS # (AUTO) 22.9 K/uL (1.8-8.9); NEUTROPHILS % (AUTO) 95.9 % (43.0-81.0); PLATELET COUNT (AUTO) 271 K/uL (150-450); RED BLOOD CELL COUNT(AUTO) 3.43 MIL/uL (4.0-5.2); RED CELL DISTRIBUTION WIDTH 18.4 % (11.5-15.0); WHITE BLOOD COUNT (AUTO) 23.9 K/uL (4.3-11.0)
[2023-02-09] MEDS: LEVOTHYROXINE SODIUM 100 MCG TABLET GT SCH (07:57)
[2023-02-09] MEDS: VANCOMYCIN HCL 0.75 GM in IV D5W 250 ML IV SCH ×2 (08:16→20:06)
[2023-02-09 08:17] LABS: ALANINE AMINOTRANSFERASE 22 U/L (12-78); ALKALINE PHOSPHATASE 104 U/L (46-116); ASPARTATE AMINOTRANSFERASE 31 U/L (15-37); BILIRUBIN,TOTAL 0.3 mg/dL (0.2-1.0); CARBON DIOXIDE 32 mmol/L (21-32); CHLORIDE 103 mmol/L (98-107); CREATININE 0.5 mg/dL (0.6-1.3); GLUCOSE 143 mg/dL (74-106); MAGNESIUM 2.2 mg/dL (1.8-2.4); PHOSPHORUS 3.2 mg/dL (2.5-4.9); SODIUM SERUM 140 mmol/L (136-145); TOTAL PROTEIN, SERUM 7.2 g/dL (6.4-8.2); UREA NITROGEN, BLOOD 21 mg/dL (7-18)
[2023-02-09] MEDS: METOPROLOL TARTRATE 25 MG TABLET GT SCH ×2 (08:18→16:07)
[2023-02-09] MEDS: THERAHONEY GEL 1.5 OZ TUBE TP SCH (09:27)
[2023-02-09] MEDS: DAKINS QUARTER STRENGTH (0.125%) 480 ML BOTTLE TOP SCH (09:27)
[2023-02-09] MEDS: ENOXAPARIN SODIUM 40 MG/0.4 ML DISP.SYRIN SQ SCH (15:13)
[2023-02-09] MEDS: IV NS 0.9% 1,000 ML IV PRN (15:33)
[2023-02-09] MEDS: AZITHROMYCIN 500 MG in IV D5W 250 ML IV SCH (17:08)
[2023-02-09] MEDS: GLUCERNA 1.2 1,000 ML BOTTLE NG PRN (17:32)
[2023-02-10] VITALS (18 sets, daily range): BP systolic 98–161; BP diastolic 59–130; TEMP 97.7–99.5; O2SAT 92–98
[2023-02-10] MEDS: ZOSYN IVPB 3.375 G in IV D5W 50ml IV SCH ×5 (00:38→23:42)
[2023-02-10] MEDS: ACETAMINOPHEN 650 MG/20.3 ML UDC GT PRN (01:46)
[2023-02-10] MEDS: methylPREDNISolone SOD SUCC 125 MG/2ML VIAL IV SCH ×3 (05:00→21:09)
[2023-02-10 06:21] LABS: BASOPHILS % (AUTO) 0.1 % (0.0-2.0); HEMATOCRIT 29 % (33-45); HEMOGLOBIN 8.8 g/dL (11.5-14.8); LYMPHOCYTES # (AUTO) 0.3 K/uL (0.8-4.8); LYMPHOCYTES % (AUTO) 1.5 % (20.0-44.0); MEAN CORPUSCULAR HEMOGLOBIN 27 PG (26.0-33.0); MEAN CORPUSCULAR HGB CONC 31 g/dl (31.0-36.0); MEAN CORPUSCULAR VOLUME 86 fL (82-100); MONOCYTES # (AUTO) 0.3 K/uL (0.1-1.30); MONOCYTES % (AUTO) 1.6 % (2.0-12.0); NEUTROPHILS # (AUTO) 17.1 K/uL (1.8-8.9); NEUTROPHILS % (AUTO) 96.8 % (43.0-81.0); PLATELET COUNT (AUTO) 225 K/uL (150-450); RED BLOOD CELL COUNT(AUTO) 3.31 MIL/uL (4.0-5.2); WHITE BLOOD COUNT (AUTO) 17.6 K/uL (4.3-11.0)
[2023-02-10 08:37] LABS: ALBUMIN 1.9 g/dL (3.4-5.0); BILIRUBIN,TOTAL 0.3 mg/dL (0.2-1.0); CALCIUM, SERUM 8.8 mg/dL (8.5-10.1); CREATININE 0.7 mg/dL (0.6-1.3); MAGNESIUM 2.2 mg/dL (1.8-2.4); PHOSPHORUS 2.5 mg/dL (2.5-4.9); POTASSIUM 4.3 mmol/L (3.5-5.1); TOTAL PROTEIN, SERUM 7.1 g/dL (6.4-8.2)
[2023-02-10] MEDS: LEVOTHYROXINE SODIUM 100 MCG TABLET GT SCH (09:36)
[2023-02-10] MEDS: VANCOMYCIN HCL 0.75 GM in IV D5W 250 ML IV SCH ×2 (09:36→20:00)
[2023-02-10] MEDS: METOPROLOL TARTRATE 25 MG TABLET GT SCH ×2 (09:36→17:05)
[2023-02-10] MEDS: THERAHONEY GEL 1.5 OZ TUBE TP SCH (17:04)
[2023-02-10] MEDS: ARGININE/GLUTAMINE/CALCIUM BMB 1 EACH POWD.PACK GT SCH (17:04)
[2023-02-10] MEDS: AZITHROMYCIN 500 MG in IV D5W 250 ML IV SCH (17:04)
[2023-02-10] MEDS: ENOXAPARIN SODIUM 40 MG/0.4 ML DISP.SYRIN SQ SCH (17:07)
[2023-02-10 20:06] LABS: *MYCOPLASMA PNEUMONIAE IgG <100 U/mL (0-99); *MYCOPLASMA PNEUMONIAE IgM <770 U/mL (0-769)
[2023-02-10 21:06] LABS: LEGIONELLA PNEUMOPHILIA AB 1.17 OD ratio (0.00-0.90)
[2023-02-11] VITALS (15 sets, daily range): BP systolic 115–155; BP diastolic 83–109; TEMP 97.5–100.4; O2SAT 80–98
[2023-02-11] MEDS: ACETAMINOPHEN 650 MG/20.3 ML UDC GT PRN (00:40)
[2023-02-11] MEDS: ZOSYN IVPB 3.375 G in IV D5W 50ml IV SCH ×3 (05:01→18:04)
[2023-02-11] MEDS: methylPREDNISolone SOD SUCC 125 MG/2ML VIAL IV SCH ×3 (05:01→20:55)
[2023-02-11] MEDS: IV NS 0.9% 1,000 ML IV PRN (05:16)
[2023-02-11 06:15] LABS: HEMATOCRIT 27 % (33-45); HEMOGLOBIN 8.4 g/dL (11.5-14.8); LYMPHOCYTES # (AUTO) 0.3 K/uL (0.8-4.8); LYMPHOCYTES % (AUTO) 1.6 % (20.0-44.0); MEAN CORPUSCULAR HEMOGLOBIN 27 PG (26.0-33.0); MEAN CORPUSCULAR HGB CONC 31 g/dl (31.0-36.0); MEAN CORPUSCULAR VOLUME 86 fL (82-100); MONOCYTES # (AUTO) 0.3 K/uL (0.1-1.30); MONOCYTES % (AUTO) 1.7 % (2.0-12.0); NEUTROPHILS # (AUTO) 18.2 K/uL (1.8-8.9); NEUTROPHILS % (AUTO) 96.7 % (43.0-81.0); PLATELET COUNT (AUTO) 247 K/uL (150-450); RED BLOOD CELL COUNT(AUTO) 3.19 MIL/uL (4.0-5.2); RED CELL DISTRIBUTION WIDTH 18.5 % (11.5-15.0); WHITE BLOOD COUNT (AUTO) 18.9 K/uL (4.3-11.0)
[2023-02-11 06:24] LABS: ALBUMIN 1.9 g/dL (3.4-5.0); BILIRUBIN,TOTAL 0.2 mg/dL (0.2-1.0); CALCIUM, SERUM 9.1 mg/dL (8.5-10.1); CREATININE 0.7 mg/dL (0.6-1.3); MAGNESIUM 2.4 mg/dL (1.8-2.4); PHOSPHORUS 3.1 mg/dL (2.5-4.9); TOTAL PROTEIN, SERUM 7.1 g/dL (6.4-8.2)
[2023-02-11] MEDS: LEVOTHYROXINE SODIUM 100 MCG TABLET GT SCH (08:11)
[2023-02-11] MEDS: ARGININE/GLUTAMINE/CALCIUM BMB 1 EACH POWD.PACK GT SCH ×2 (09:49→18:03)
[2023-02-11] MEDS: METOPROLOL TARTRATE 25 MG TABLET GT SCH ×2 (09:51→18:04)
[2023-02-11] MEDS: PROSOURCE / PROSTAT (PYXIS) 30 ML UDC GT SCH (09:51)
[2023-02-11] MEDS: THERAHONEY GEL 1.5 OZ TUBE TP SCH (09:52)
[2023-02-11] MEDS: HYDROCODONE/APAP 5/325MG TABLET GT PRN (13:27)
[2023-02-11] MEDS ORDERED: VANCOMYCIN HCL 0.75 GM in IV D5W 250 ML IV SCH (14:00)
[2023-02-11] MEDS: ENOXAPARIN SODIUM 40 MG/0.4 ML DISP.SYRIN SQ SCH (16:17)
[2023-02-12] VITALS (8 sets, daily range): BP systolic 84–141; BP diastolic 62–87; TEMP 99–100.8; O2SAT 90–100
[2023-02-12] MEDS: ZOSYN IVPB 3.375 G in IV D5W 50ml IV SCH ×2 (00:14→05:43)
[2023-02-12] MEDS: GLUCERNA 1.2 1,000 ML BOTTLE NG PRN (01:13)
[2023-02-12] MEDS: methylPREDNISolone SOD SUCC 125 MG/2ML VIAL IV SCH (04:16)
[2023-02-12] MEDS: IV NS 0.9% 1,000 ML IV PRN (04:19)
[2023-02-12 08:08] LABS: CALCIUM, SERUM 8.6 mg/dL (8.5-10.1); CREATININE 0.7 mg/dL (0.6-1.3)
[2023-02-12 08:15] LABS: POTASSIUM 4.7 mmol/L (3.5-5.1)
[2023-02-12] MEDS: LEVOTHYROXINE SODIUM 100 MCG TABLET GT SCH (08:40)
[2023-02-12] MEDS: METOPROLOL TARTRATE 25 MG TABLET GT SCH (09:00)
[2023-02-12] MEDS: THERAHONEY GEL 1.5 OZ TUBE TP SCH (09:25)
[2023-02-12] MEDS: PROSOURCE / PROSTAT (PYXIS) 30 ML UDC GT SCH (09:26)
[2023-02-12] MEDS: ARGININE/GLUTAMINE/CALCIUM BMB 1 EACH POWD.PACK GT SCH (09:49)
[2023-02-12] MEDS ORDERED: IV 1/2NS 1000 ML 1,000 ML IV PRN (10:00)
[2023-02-12] MEDS ORDERED: IV 1/2NS 1000 ML 1,000 ML IV ONE (10:00)
== END 2023-02-12 12:55 | DRG 871 ==
LOC: ER 13:42 → TELE1 16:23
PROVIDERS: ATTEND Internal Medicine
DX: A41.9 Sepsis, unspecified organism (principal); G92.8 Other toxic encephalopathy; J96.01 Acute respiratory failure with hypoxia; J69.0 Pneumonitis due to inhalation of food and vomit; L89.154 Pressure ulcer of sacral region, stage 4; L89.324 Pressure ulcer of left buttock, stage 4; L89.314 Pressure ulcer of right buttock, stage 4; R53.2 Functional quadriplegia; L89.893 Pressure ulcer of other site, stage 3; N17.9 Acute kidney failure, unspecified; J44.0 Chronic obstructive pulmonary disease with (acute) lower respiratory infection; Z51.5 Encounter for palliative care; F20.0 Paranoid schizophrenia; N39.0 Urinary tract infection, site not specified; F03.C3 Unspecified dementia, severe, with mood disturbance; D64.9 Anemia, unspecified; E11.9 Type 2 diabetes mellitus without complications; I48.91 Unspecified atrial fibrillation; E03.9 Hypothyroidism, unspecified; E78.5 Hyperlipidemia, unspecified; E86.0 Dehydration; I10 Essential (primary) hypertension; I25.10 Atherosclerotic heart disease of native coronary artery without angina pectoris; M24.572 Contracture, left ankle; M24.571 Contracture, right ankle; Z93.1 Gastrostomy status; R13.10 Dysphagia, unspecified; Z86.73 Personal history of transient ischemic attack (TIA), and cerebral infarction without residual deficits; Z66 Do not resuscitate; K59.00 Constipation, unspecified; L89.520 Pressure ulcer of left ankle, unstageable; F09 Unspecified mental disorder due to known physiological condition; F32.9 Major depressive disorder, single episode, unspecified
CPT/HCPCS: 31720; 36415; 71045-TC; 80048-TC; 80053-TC; 80076-TC; 80202-TC; 81001; 83605-TC; 83735-TC; 84100-TC; 84484-TC; 85025-TC; 85730-TC; 86480; 86713; 86738; 86803; 87040-TC; 87086-TC; 87449; 87806; 93970-TC; 94640-TC; 94760-TC; 94799-TC; A4218; A4223; A6253; A6403; C9803; G0378; J0456; J1650; J2543; J2930; J3370; J7030; J7060